=== PATIENT | male | born 1970 | race Caucasian/White ===

== ENCOUNTER → 2020-11-29 | Outpatient (CLI) | payer OTHER ==
--- NOTE | 2020-11-29 14:24 | KCIC ---
MRI study of the right shoulder without contrast Clinical indications: Right shoulder pain for years. Limited range of motion due to pain recently. TECHNIQUE: Noncontrast MRI sequences of the right shoulder were performed in all 3 planes. FINDINGS: There is increased signal within the supraspinatus and infraspinatus tendons consistent wit h tendinosis. Small partial bursal side rim rent tear is apparent within the lateral aspect of the christie praspinatus tendon at the insertion onto the foot plate of the greater tubercle. There is underlying bone marrow edema and chronic erosion and cyst formation related to chronic impingement of the acromi al humeral space. 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 Otherwise no complete rotator cuff te ar is seen. There is tendinosis of the lateral aspect of the subscapularis tendon which is otherwise intact. The tendon of the long head of the biceps is intact. No muscle atrophy is seen. No subdeltoid or subacromial bursitis is seen. There is mild degenerative spurring of the glenohumeral joint. Smal l glenohumeral joint effusion is seen. There is a tear of the posterior superior aspect of the glenoi d labrum. No paralabral ganglion cyst or spinoglenoid notch ganglion cyst is seen. IMPRESSION: Small bursal side partial rim rent tear of the lateral aspect of the supraspinatus tendon at the attachment to the foot plate. Associated impingement of this area of the humerus. No complete rotator cuff tear. Tear of the posterior superior aspect of the glenoid labrum without paralabral ganglion cyst. Electronically signed by: Deniz Agudelo MD (11/29/2020 2:22 PM) [place] [id number]
== END ==
LOC: KCIC MRI 10:25
PROVIDERS: ATTEND Physician Assistant
DX: S43.491A Other sprain of right shoulder joint, initial encounter (principal); S46.011A Strain of muscle(s) and tendon(s) of the rotator cuff of right shoulder, initial encounter; M19.011 Primary osteoarthritis, right shoulder; M25.811 Other specified joint disorders, right shoulder; M75.81 Other shoulder lesions, right shoulder; M25.411 Effusion, right shoulder; X58.XXXA Exposure to other specified factors, initial encounter; Y93.89 Activity, other specified; Y92.89 Other specified places as the place of occurrence of the external cause; Y99.8 Other external cause status
CPT/HCPCS: 73221

== ENCOUNTER → 2021-02-08 | Outpatient (CLI) | payer OTHER ==
[~2021-02-08] MED LIST: LOSA1TAB22 PO; OXYC1TAB19 PO
== END ==
LOC: LAB 09:57
PROVIDERS: ATTEND Orthopaedic Surgery
DX: Z01.812 Encounter for preprocedural laboratory examination (principal); Z20.822 Contact with and (suspected) exposure to COVID-19; S43.431A Superior glenoid labrum lesion of right shoulder, initial encounter; M75.111 Incomplete rotator cuff tear or rupture of right shoulder, not specified as traumatic; X58.XXXA Exposure to other specified factors, initial encounter; Y93.89 Activity, other specified; Y92.89 Other specified places as the place of occurrence of the external cause; Y99.8 Other external cause status
CPT/HCPCS: U0003

== ENCOUNTER 2021-02-11 06:10 | Day surgery (SDC) | payer OTHER ==
[~2021-02-11] VITALS: Ht 172.7 cm; Wt 71.0 kg
[~2021-02-11 06:10] MED LIST changes: +HYDROmorphone 2 MG/ML VIAL IVP PRN; +IV RINGERS,LACTATED 1000ML 1,000 ML IV SCH; +MORPHINE SULFATE 2 MG/ML VIAL. IVP PRN; -OXYC1TAB19 PO; +PROCHLORPERAZINE 10 MG/2 ML VIAL. IVP PRN; +fentaNYL PF VIAL 100 MCG/2 ML VIAL IVP PRN
[2021-02-11 06:31] VITALS: BP 137/91
[2021-02-11] MEDS ORDERED: MIDAZOLAM HCL/PF 2 MG/2 ML VIAL. ONE (06:32)
[2021-02-11] MEDS ORDERED: BUPIVACAINE MPF 0.5% 30 ML VIAL. ONE (06:33)
[2021-02-11] MEDS ORDERED: ceFAZolin 2GM PREMIX 2 GM/50 ML BAG IV ONE (07:00)
[2021-02-11] MEDS ORDERED: EPINEPHrine VIAL 30 MG/30 ML VIAL ONE (07:03)
[2021-02-11] MEDS ORDERED: LIDOCAINE 2% PF 5 ML VIAL. ONE (07:21)
[2021-02-11] MEDS ORDERED: PROPOFOL 10 MG/ML (20ML) VIAL. IV ONE (07:21)
[2021-02-11] MEDS ORDERED: ROCURONIUM 50 MG/5 ML VIAL. ONE (07:21)
[2021-02-11] MEDS ORDERED: fentaNYL PF VIAL 100 MCG/2 ML VIAL ONE (07:21)
[2021-02-11] MEDS ORDERED: GLYCOPYRROLATE 1 MG/5 ML VIAL. ONE (09:12)
[2021-02-11] MEDS ORDERED: DEXAMETHASONE SOD PHOS 4 MG/ML VIAL ONE (09:12)
[2021-02-11] MEDS ORDERED: ONDANSETRON PF 4 MG/2 ML VIAL. ONE (09:12)
[2021-02-11] MEDS ORDERED: NEOSTIGMINE METHYLSULFATE 5 MG/5 ML SYRINGE. ONE (09:13)
[2021-02-11] MEDS ORDERED: SEVOFLURANE > 120 MINUTES. IH ONE (09:15)
[2021-02-11] MEDS ORDERED: OXYC1TAB19 PO (09:41)
--- NOTE | 2021-02-11 09:44 | DISCH ---
DISCHARGE INSTRUCTIONS Condition on Discharge Condition on Discharge: Stable Activity After Discharge Activity Instructions for Disc: Other, see below (No active movement of right elbow away from the body, may do fine motor use with the elbow at the side such as eating writing typing or similar) Exercise Instruction after Dis: Exercise per therapy Weight Bearing Status after Di: Non weight bearing (Wear immobilizer at night or asleep at all times may remove during the day to hang the arm down as a pendulum swing or to eat/fine motor use) Diet after Discharge Diet after Discharge: Regular Wound Incision Care Wound/Incision Care: Change dressing (Remove dressing in 2 days may then shower no soaking until sutures removed) Community/Resources/Services Services at Discharge: PT EVALUATE & TREAT (Passive range of motion of right shoulder only until about 1 month postop, prefers [facility] in [place]) Contacting the after DC Call your doctor for: Concerns you may have Follow-Up Follow up with: Dr. Soares or Lucia 10 days CRIS SOARES MD Feb 11, 2021 09:44
[2021-02-11 10:09] VITALS: BP 145/88
--- NOTE | 2021-02-11 13:03 | PDOC4 ---
Operative Note Operative Note Date of surgery: 02/11/2021 Preoperative diagnosis: Right shoulder SLAP tear and high-grade partial- thickness rotator cuff tear Postoperative diagnosis: Same with very high-grade partial-thickness supraspinatus tear especially anteriorly Operative procedure: Right shoulder arthroscopy arthroscopic rotator cuff repair biceps tenodesis and labral debridement Surgeon: Fany Anesthesia: General plus scalene block Estimated blood loss: 10 cc Complications: None Operative indications: Please see my orthopedic clinic note for detailed operative indications and note that we did cover the long recovery timeframe the necessary restrictions and physical therapy and home exercises expected to be required. We covered the possibility of nonhealing infection nerve or blood vessel damage shoulder stiffness medical or other anesthetic complications among others he agrees to proceed with surgical evaluation and treatment Operative text: Patient was identified procedure verified patient placed in the supine position on the operating table. After adequate amounts of general anesthesia were administered plus a pre-existing scalene block patient was placed decubitus right side up all bony prominences were well-padded and the shoulder was examined found a full range of motion and no instability. The right shoulder was then prepped and draped in standard sterile fashion placed in the arthroscopic arm hwang with a total of 10 pounds of traction and after timeout was performed patient procedure identified and verified a standard posterior portal was established an anterior portal established using spinal needle localization and the shoulder joint was systematically examined. He was found to have an unstable type II SLAP tear and a high-grade distal supraspinatus tear worst in the anterior aspect. A spinal needle was placed and a PDS suture placed to localize the specific area and I was able to move the needle significantly back and forth in the tissue indicating very wispy remaining insertion of the distal supraspinatus. I elected then to do biceps tenodesis and the biceps was tagged and tenotomized. Subacromial bursa was entered and cleared for visualization. The near full-thickness distal supraspinatus tear was completed and the rotator cuff footprint debrided. A single 2.9 juggernaut double loaded anchor was placed on the medial side of the footprint simple sutures were placed and lateral row fixation carried out with a 4.5 mm Quatro link knotless anchor which obtained excellent apposition to the rotator cuff footprint and a watertight repair. The bicipital groove was then unroofed biceps tendon retrieved through the anterior portal and after preparation with a 7 mm drill drilled over a cannulated guide biceps was appropriately tensioned and fixated with a Quatro bolt 8 mm x 16 mm tenodesis screw. Joint was then drained of arthroscopic fluid portals closed with nylon suture sterile dressings were applied patient was placed in an immobilizer transferred to postop holding in stable condition having tolerated procedure well CRIS BAKER MD Feb 11, 2021 13:03
== END 2021-02-11 10:45 | disposition home or self-care (01) ==
LOC: SURG 06:10
PROVIDERS: ATTEND Orthopaedic Surgery
DX: S43.431A Superior glenoid labrum lesion of right shoulder, initial encounter (principal); M75.101 Unspecified rotator cuff tear or rupture of right shoulder, not specified as traumatic; I10 Essential (primary) hypertension; Z87.891 Personal history of nicotine dependence; Z79.899 Other long term (current) drug therapy; Z98.890 Other specified postprocedural states; Z72.89 Other problems related to lifestyle; X58.XXXA Exposure to other specified factors, initial encounter; Y93.89 Activity, other specified; Y92.89 Other specified places as the place of occurrence of the external cause; Y99.8 Other external cause status
CPT/HCPCS: 29807; 29827; 29828; 64415; A4565; A4930; C1713; J0171; J0690; J1100; J2250; J2405; J2704; J2710; J3010; J3490; A4223